=== PATIENT | male | born 1940 | race Caucasian/White ===

== ENCOUNTER 2018-01-13 11:23 | Emergency (ER) | payer MEDICARE, BC ==
--- NOTE | 2018-01-13 11:48 | Emergency Department Record ---
History of Present Illness - General Chief Complaint: Chest Pain Stated Complaint: CHEST PAIN Time Seen by Provider: 01/13/18 11:39 Source: Patient Mode of Arrival: Ambulatory Limitations: No limitations - History of Present Illness Initial Comments: 77 yo male presents with chest pain. No prior visits to this ED on EMR. He states he has had several months of a pain on a specific site of the left chest. He can press the area and feel a pain between 2 specific ribs. No pain with exertion or activity. No prior cardiac history. No shortness of breath. No cough. No edema. No pain with deep inspiration. He has had left arm tight feeling at times as well. Non exertion related. The symptoms come and go lasting seconds to less than two minutes. He has HTN. He had an ECHO and stress test in early 2018 in [place]. He reports these test results were negative for any abnormality. He keeps a BP log at home. Systolic normally 130 -140 with diastolic in the 70's. MD Complaint: Chest pain Onset/Timin -: Days(s) Onset: During exertion Pain Location: Left chest Quality: Aching Consistency: Intermittent Improves With: Other Worsens With: Palpation Anginal Symptoms: Other (No shortness of breath) Treatments Prior to Arrival: Aspirin Treatment Prior to Arrival Comment:: 324 - Related Data Home Medications Medication Instructions Recorded Confirmed Last Taken Aspirin [Aspir-Low] 81 mg PO DAILY 01/13/18 01/13/18 01/13/18 Calcium Carb, Citrate/Vit D3 1 each PO DAILY 01/13/18 01/13/18 01/13/18 [Citracal + D ER Tablet] Cyanocobalamin (Vitamin B-12) 2,500 mcg SL DAILY 01/13/18 01/13/18 01/13/18 [Vitamin B-12] Glucosamine/D3/Boswellia Luz 1 each PO DAILY 01/13/18 01/13/18 01/13/18 [Osteo Bi-Flex Tablet] Lysine [l-Lysine] 500 mg PO DAILY 01/13/18 01/13/18 01/13/18 Metformin HCl [Metformin HCl ER] 500 mg PO BID 01/13/18 01/13/18 01/13/18 Multivit-Min/FA/Lycopen/Lutein 1 each PO DAILY 07/03/18 07/03/18 07/03/18 [Centrum Silver Tablet] [place]-3 Fatty Acids/Fish Oil [Fish 1 each PO DAILY 01/13/18 01/13/18 01/13/18 Oil 1,000 mg Capsule] Pravastatin Sodium [Pravachol] 40 mg PO DAILY 01/13/18 01/13/18 01/13/18 Tadalafil [Cialis] 5 mg PO ASDIR 01/13/18 01/13/18 01/13/18 Vitamin E 400 unit PO DAILY 01/13/18 01/13/18 01/13/18 Travel Screening - Travel/Exposure Within Last 30 Days Have you traveled within the last 30 days?: No - Travel/Exposure Within Last Year Have you traveled outside the [place] in the last year?: No - Additonal Travel Details Have you been exposed to anyone with a communicable illness?: No - Travel Symptoms Symptom Screening: None Review of Systems Constitutional: Denies: Chills, Fever, Malaise, Weakness Eyes: Denies: Eye discharge, Eye pain, Photophobia, Vision change ENT: Denies: Congestion, Throat pain Respiratory: Denies: Cough, Dyspnea, Hemoptysis, Stridor, Wheezes Cardiovascular: Reports: As per HPI, Chest pain. Denies: Edema, Palpitations, Paroxysmal nocturnal dyspnea, Syncope Endocrine: Denies: Fatigue, Polydipsia, Polyuria Gastrointestinal: Denies: Abdominal pain, Diarrhea, Nausea, Vomiting Genitourinary: Denies: Dysuria, Frequency, Hematuria Musculoskeletal: Denies: Arthralgia, Back pain, Joint swelling, Myalgia Skin: Denies: Bruising, Change in color, Rash Neurological: Denies: Confusion, Headache, Numbness, Weakness Psychiatric: Denies: Anxiety Hematological/Lymphatic: Denies: Blood Clots, Easy bleeding, Easy bruising Past Medical History - SOCIAL HISTORY Smoking Status: Former smoker Alcohol Use: Occasional Drug Use: None Family Medical History Any Significant Family History?: No Physical Exam - General General Appearance: Alert, Oriented x3, Cooperative, No acute distress Limitations: No limitations - Head Head exam: Normal inspection - Eye Eye exam: Normal appearance, PERRL. negative: Conjunctival injection, Scleral icterus - ENT ENT exam: Normal exam. negative: Mucous membranes moist, Normal orophraynx Ear exam: Normal external inspection Nasal Exam: Normal inspection Mouth exam: Normal external inspection Teeth exam: Normal inspection - Neck Neck exam: Normal inspection, Full ROM. negative: Tenderness - Respiratory Respiratory exam: Normal lung sounds bilaterally, Chest wall tenderness (Point tender between 2 specific ribs). negative: Accessory muscle use, Prolonged expiratory, Respiratory distress, Rhonchi, Stridor, Wheezes - Cardiovascular Cardiovascular Exam: Regular rate, Normal rhythm, Normal heart sounds. negative : Irregular rhythm, Tachycardia Peripheral Pulses: 2+: Radial (R), Radial (L) - GI/Abdominal GI/Abdominal exam: Soft. negative: Distended, Guarding, Mass, Pulsatile mass, Rebound, Rigid, Tenderness - Rectal Rectal exam: Deferred - exam: Deferred - Extremities Extremities exam: Normal inspection. negative: Full ROM, Normal capillary refill, Pedal edema, Tenderness - Back Back exam: Denies: CVA tenderness (R), CVA tenderness (L), Paraspinal tenderness , Rash noted, Tenderness, Vertebral tenderness - Neurological Neurological exam: Alert, Normal gait, Oriented X3 - Psychiatric Psychiatric exam: Normal affect, Normal mood - Skin Skin exam: Dry, Intact, Normal color, Warm Course Vital Signs 01/13/18 11:27 Pulse Rate 50 L Respiratory 16 Rate Blood Pressure 191/87 Pulse Ox 99 - Reevaluation(s) Reevaluation #1: Atypical symptoms over several months. Point tender. Non exertion related. Per the patient normal ECHO and Stress test in August in [place]. 01/13/18 11:47 EKG #1: 1124 Rate: 50 Rhythm: sinus bradycardia [place]: normal Intervals: normal ST segments: no acute changes Prior: none 01/13/18 12:34 The labs were reviewed No acute changes on the CBC,CMP,Troponin 01/13/18 13:41 The CXR was negative 01/13/18 13:50 The results were discussed with the patient. His symptoms are very atypical lasting seconds to minutes, pin point reproducible with palpation, NON exertional. Per the patient normal ECHO and stress test 4 months ago. No shortness of breath. Given his age I did offer to discuss with cardiology at [facility] or [facility]. He declined. 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 He will return if any typical symptoms occur (persistent, dyspnea, exertional). 01/13/18 18:32 Medical Decision Making - Lab Data Result diagrams: 01/13/18 11:32 01/13/18 11:32 Disposition Disposition: Discharge Clinical Impression: Chest pain, atypical Disposition: Home, Self-Care Condition: (1) Good Instructions: Chest Pain (ED) Additional Instructions: Return or be seen if you have any exertion related symptoms, dyspnea, or pain that is not reproduced with touching. Call your doctors to be seen for follow up. Forms: Patient Portal Access Time of Disposition: 13:53 Quality - Quality Measures Quality Measures: N/A - Blood Pressure Screening Does Patient Have Any of the Following: Active Dx of HTN Blood Pressure Classification: Hypertensive Reading Systolic Measurement: 165 Diastolic Measurement: 75 Screening for High Blood Pressure: Patient Exclusion, Hx of HTN [G9744]
[2018-01-13 12:01] LABS: BASO % 0.2 % (0-6); GRAN % 55.5 % (47-80); HEMATOCRIT 43.4 % (42.0-52.0); HEMOGLOBIN 14.9 gm/dl (14.0-18.0); LYMPH % 31.4 % (16-45); MEAN CELL VOLUME 89.1 fl (81-97); MEAN CORPUSCULAR HEMOGLOBIN 30.6 pg (27-33); MEAN CORPUSCULAR HGB CONC 34.3 g/dl (32-36); MEAN PLATELET VOLUME 10.4 fl (7.4-10.4); MONO % 11.9 % (0-9); PLATELET COUNT 215 K/uL (130-400); RED BLOOD COUNT 4.87 M/uL (4.40-5.70); RED CELL DISTRIBUTION WIDTH 13.9 % (11.5-14.5); WHITE BLOOD COUNT W/O DIFF 6.2 K/uL (4.2-12.2)
[2018-01-13 12:08] LABS: BLOOD UREA NITROGEN 22 mg/dL (8-23); CREATININE 0.7 mg/dL (0.7-1.2); EST GLOMERULAR FILTRATION RATE > 60 mL/min
[2018-01-13 12:10] LABS: GLUCOSE,RANDOM 106 mg/dL (74-109); PARTIAL THROMBOPLASTIN TIME 28.9 SECONDS (24.5-39.1); PROTHROMBIN TIME (PATIENT) 10.8 SECONDS (9.5-12.1)
[2018-01-13 12:13] LABS: ALBUMIN 4.5 g/dL (4.0-5.0); ALKALINE PHOSPHATASE 42 U/L (40-129); ALT/SGPT 14 U/L (<41); AST/SGOT 18 U/L (10.0-50.0)
[2018-01-13 12:18] LABS: ALB/GLOB RATIO 1.8 (1.1-1.8)
--- NOTE | 2018-01-15 13:10 | RADIOLOGY REPORT ---
EXAM: CHEST, TWO VIEWS HISTORY: DIFFICULTY IN BREATHING. TECHNIQUE: Frontal and lateral views of the chest were performed. FINDINGS: The heart size is normal. No pulmonary vascular congestion. No infiltrate or pleural effusion. The osseous structures are normal. IMPRESSION: NEGATIVE CHEST EXAMINATION. JOB NUMBER: [id number] MTDD
== END 2018-01-13 14:08 | disposition home or self-care (01) ==
LOC: ER 11:23
DX: R07.89 Other chest pain (principal); R20.2 Paresthesia of skin; E11.9 Type 2 diabetes mellitus without complications; Z79.84 Long term (current) use of oral hypoglycemic drugs; Z87.891 Personal history of nicotine dependence
CPT/HCPCS: 71046; 80053; 83880; 84484; 85025; 85610; 85730; 93005; 93010; 99284